=== PATIENT | male | born 1995 | race Caucasian/White ===

== ENCOUNTER 2024-08-16 09:11 | Outpatient (CLI) | payer OTHER, SELFPAY ==
--- NOTE | 2024-08-16 09:19 | XR_ITS ---
FINAL REPORT CLINICAL HISTORY: DEGENERATIVE DISC DISEASEOF T-SPINE COMPARISON: None FINDINGS: Two views of the thoracic spine were obtained. The vertebrae are normal in height. There is less than 10 degrees of lower thoracic scoliosis convex to the left. There is no malalignment. There are no significant degenerative changes. IMPRESSION: No acute bony abnormality. Three views of the lumbosacral spine were obtained. The vertebrae are normal in height. There is no malalignment. There are no significant degenerative changes. IMPRESSION: No acute bony abnormality. Reviewed, Interpreted and Dictated by Satinder Umanzor MD Transcribed by Maryse Oconnor Authenticated and [facility]
== END 2024-08-16 23:59 | disposition home or self-care (01) ==
LOC: RAD 09:14
PROVIDERS: Visit Provider Chiropractor
DX: M51.35 Other intervertebral disc degeneration, thoracolumbar region (principal)
CPT/HCPCS: 72083